=== PATIENT | female | born 1985 | race Caucasian/White ===

== ENCOUNTER 2018-04-07 14:42 | Inpatient (IN) | payer OTHER ==
[~2018-04-07] VITALS: Ht 172.7 cm; Wt 121.0 kg
--- NOTE | ~2018-04-07 | OR ---
[facility] [address], [place] [address] Draft DATE OF OPERATION: 05/07/2018 SURGEON: Brittany Kilgore DO PREOPERATIVE DIAGNOSES: 1. Term at 39 weeks and 2 days gestation. 2. History of prior x2. 3. Obesity in . POSTOPERATIVE DIAGNOSES: 1. Term at 39 weeks and 2 days gestation. 2. History of prior x2. 3. Obesity in . PROCEDURE PERFORMED: Repeat low transverse section. STREETS AND BUILDINGS DECORATOR: Anne Garcia MD. ANESTHESIA: Spinal. ESTIMATED BLOOD LOSS: 600 mL. COMPLICATIONS: None. FINDINGS: Viable female , 8 pounds 3 ounces with Apgars of 9 and 9 at 1 and 5 minutes respectively. Normal tubes, ovaries, and uterus. There was white scarring between the rectus and the fascia. INDICATIONS: Ms. Cooper is a pleasant 32-year-old, G7, P 2-0-4-2 white female who presents for scheduled repeat low transverse section. is complicated by history of prior x2, obesity, and uterine size, date discrepancy. The patient was scheduled for a repeat low transverse section. Risks, benefits, and alternatives were discussed in detail with the patient. The patient had desired a tubal PATIENT NAME: KRISTEN COOPER OPERATIVE REPORT DATE OF : 85 REPORT #: [id number] PHYSICIAN: BRITTANY KILGORE DO PCP: BRITTANY KILGORE DO REPORT IS CONFIDENTIAL AND NOT TO BE RELEASED WITHOUT AUTHORIZATION [facility] [address] [place], [place] [address] Draft ligation and this was submitted to the [place] Ethics Committee for consideration and they denied her request. TECHNIQUE: The patient was taken to the operating room and time-out was performed to confirm correct patient and correct procedure. Spinal anesthesia was adequately established. The patient was prepped and draped in the supine position with a bump in her right hip. Ancef 3 g were given and no heparin was indicated. A Phillips catheter was inserted and spinal anesthetic was checked and found to be adequate. A Pfannenstiel skin incision was made ellipsing out the prior scar and carried down to and through the fascia in the midline. The fascial incision was extended bilaterally using Ivllanueva scissors. The fascial edges were grasped with Fam's, elevated and the underlying rectus muscle was dissected off with blunt and sharp dissection. Slight scarring was noted in the plane, but the rectus was easily taken down. The rectus muscles were then divided in the midline using blunt dissection. The peritoneum was then grasped with hemostats, elevated and entered sharply. Peritoneal incision was extended bilaterally using blunt and sharp dissection. The pelvis was examined and found to be free of significant scar tissue or adhesions. An Mehul self retractor was placed. Lower uterine segment was identified and hysterotomy was performed using a surgical scalpel. Hysterotomy was then extended bilaterally using blunt dissection and the amnion ruptured and found to be clear. The surgeon's hand was then placed in the uterine cavity. head elevated and delivered with the assistance of fundal pressure. No nuchal cord was noted and the baby was delivered without difficulty. The was vigorous and cried at delivery. The cord was doubly clamped and cut and the handed to the waiting pediatric team for further care. Cord blood was obtained for routine analysis and the placenta was expressed intact with a centrally inserted three-vessel cord. The uterine cavity was cleared of any remaining products of conception and Pitocin was given per protocol to enhance uterine involution. Hysterotomy was then repaired using 0 Vicryl in a running lock stitch and a 2nd layer of 0 Vicryl in a vertical imbricating stitch with good imbrication noted. There was some oozing along the hysterotomy in the midline. This was made hemostatic with [id number] suture. She also had a serosal abrasion at the left portion of the uterine corpus that did not extend into the broad ligament. This was made hemostatic with a combination of [id number] sutures, Bovie electrocautery, and Jignesh powder. Once the hemostasis was assured, the Mehul uterine manipulator was removed. The pelvis was irrigated and found to be hemostatic. An ACell sheet was applied to the lower uterine segment. Peritoneum was then reapproximated using 2-0 Vicryl in a running nonlocked manner. The rectus muscles were reapproximated using 0 Vicryl in a loose interrupted sutures. The rectus was irrigated and made hemostatic with Bovie electrocautery. Once hemostasis was assured, a small amount of remaining Jignesh powder was placed and ACell powder was also placed. The fascia was then reapproximated using 0 Vicryl in a running nonlocked manner. Subcutaneous space was then reapproximated using 2-0 Vicryl in a running nonlocked manner. Skin was then PATIENT NAME: KRISTEN COOPER OPERATIVE REPORT DATE OF : 85 REPORT #: [id number] PHYSICIAN: BRITTANY KILGORE DO PCP: BRITTANY KILGORE DO REPORT IS CONFIDENTIAL AND NOT TO BE RELEASED WITHOUT AUTHORIZATION [address] [address] Draft reapproximated using Quill suture with good hemostasis and cosmesis. The uterus was Crede'd for scant blood and the and mother were taken to the PACU in good and stable condition. Sponge, needle, and instrument count were correct x2 at the end of the procedure. Dr. Garcia was present, participated in all portions of procedure. Brittany Kilgore DO JDW/MODL /[id number] Copies: ~ PATIENT NAME: JESUS MANUELKRISTEN Reeder OPERATIVE REPORT DATE OF : 85 REPORT #: [id number] PHYSICIAN: BRITTANY KILGORE DO PCP: BRITTANY KILGORE DO REPORT IS CONFIDENTIAL AND NOT TO BE RELEASED WITHOUT AUTHORIZATION
[2018-05-07] MEDS ORDERED: PRENATAL VITAM1 EAC7 PO (05:48)
[2018-05-07] MEDS ORDERED: ZANTAC150 MG PO (05:48)
[2018-05-07] MEDS ORDERED: BENADRYL25 MG PO (05:49)
--- NOTE | 2018-05-07 08:52 | NUR ---
05/07/18 0852 Beti Garner 4246-PATIENT ARRIVED TO ROOM FROM OR. AWAKE ALERT RA DENIES PAIN OR NAUSEA. FUNDUS UMBILICUS FIRM LEAH PAD IN PLACE LIGHT RUBRA DRAINAGE. SR. AT BEDSIDE WITH BABY. IV INFUSING WITH LR 40 PITOCIN TO RIGHT HAND
== END 2018-05-09 12:26 | disposition home or self-care (01) | DRG 766 ==
LOC: FBC 05-07 05:04
PROVIDERS: ADMIT Obstetrics & Gynecology
PROC: 10D00Z1 Extraction of Products of Conception, Low, Open Approach (ICD-10-PCS; principal; 2018-05-07 06:45)
DX: O34.211 Maternal care for low transverse scar from previous cesarean delivery (principal); N85.8 Other specified noninflammatory disorders of uterus; O99.214 Obesity complicating childbirth; E66.9 Obesity, unspecified; O36.63X0 Maternal care for excessive fetal growth, third trimester, not applicable or unspecified; Z88.0 Allergy status to penicillin; Z3A.39 39 weeks gestation of pregnancy; Z37.0 Single live birth
CPT/HCPCS: 01961; 36415; 85027; C1763; J0690; J1644; J1885; J2274; J2405; J2590; J2765; J3010; J7120